=== PATIENT | female | born 2000 | race Caucasian/White ===

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

== ENCOUNTER 2021-02-28 23:56 | Emergency (ER) | payer OTHER ==
[~2021-02-28] VITALS: Ht 167.6 cm; Wt 65.5 kg
[~2021-02-28 23:56] MED LIST: NORT1TAB3
[2021-03-01] MEDS ORDERED: ACETAMINOPHEN TAB 650MG DOSE (2X325MG) PO ONE (05:05)
[2021-03-01] MEDS ORDERED: AMOXICILLIN 500 MG CAP PO ONE (05:25)
[2021-03-01] MEDS ORDERED: AMOX500C PO (05:50)
[2021-03-01 06:15] VITALS: BP 122/61
== END 2021-03-01 06:19 | disposition home or self-care (01) ==
LOC: M ED 23:56
DX: J03.00 Acute streptococcal tonsillitis, unspecified (principal)

== ENCOUNTER → 2021-04-25 | Outpatient (REF) | payer OTHER ==
[~2021-04-25] MED LIST changes: +AMOX500C PO
[2021-04-25 20:21] LABS: RSV AMPLIFICATION POSITIVE (NEGATIVE)
== END ==
LOC: M LAB REF 17:59
PROVIDERS: ATTEND Specialist
DX: J03.90 Acute tonsillitis, unspecified (principal)

== ENCOUNTER → 2021-05-01 | Outpatient (REF) | payer OTHER ==
[2021-05-01 19:16] LABS: RSV AMPLIFICATION POSITIVE (NEGATIVE)
== END ==
LOC: M LAB REF 17:12
PROVIDERS: ATTEND Specialist
DX: J01.90 Acute sinusitis, unspecified (principal)

== ENCOUNTER → 2021-08-11 | Outpatient (REF) | payer OTHER | LOC: M WUC 17:05 | PROVIDERS: ATTEND Physician Assistant | DX: N39.0 Urinary tract infection, site not specified (principal) ==

== ENCOUNTER → 2021-12-12 | Outpatient (CLI) | payer OTHER | LOC: M LABSMTC 09:03 | PROVIDERS: ATTEND Anesthesiology | DX: Z01.818 Encounter for other preprocedural examination (principal); Z11.52 Encounter for screening for COVID-19 ==

== ENCOUNTER 2021-12-17 09:58 | Day surgery (SDC) | payer OTHER ==
[~2021-12-17] VITALS: Ht 167.6 cm; Wt 70.4 kg
[2021-12-17] MEDS ORDERED: LR 1,000 ML IV SCH ×3 (11:00→15:00)
[2021-12-17] MEDS ORDERED: propofoL 200 MG/20 ML VIAL As Ordered ONE (12:06)
[2021-12-17] MEDS ORDERED: MIDAZOLAM INJ 2MG/2ML VIAL (J2250 PER 1MG) As Ordered ONE (12:06)
[2021-12-17] MEDS ORDERED: LIDOCAINE 2% 100MG/5ML SDV (FOR ANES.) As Ordered ONE (12:06)
[2021-12-17] MEDS ORDERED: fentaNYL 100 MCG/2 ML INJECTION As Ordered ONE (12:06)
[2021-12-17] MEDS ORDERED: ROCURONIUM BROMIDE 50 MG/5 ML VIAL As Ordered ONE (12:06)
[2021-12-17] MEDS ORDERED: dexameTHASONE 4 MG/ML 1ML VIAL (J1100 PER 1MG) As Ordered ONE (12:06)
[2021-12-17] MEDS ORDERED: ONDANSETRON 4MG/2ML VIAL As Ordered ONE (12:06)
[2021-12-17] MEDS ORDERED: BUPIVACAINE/EPIN 0.5% 30 ML VIAL As Ordered ONE (12:53)
[2021-12-17] MEDS ORDERED: SUGAMMADEX SODIUM 500 MG/5 ML VIAL (BRIDION) As Ordered ONE (13:45)
[2021-12-17] MEDS ORDERED: fentaNYL 100 MCG/2 ML INJECTION IV PRN (13:50)
[2021-12-17] MEDS ORDERED: ONDANSETRON 4MG/2ML VIAL IV PRN ×2 (13:50→14:30)
[2021-12-17] MEDS ORDERED: oxyCODONE 5MG TAB PO PRN (13:50)
[2021-12-17] MEDS ORDERED: HYDROMORPHONE HCL 0.5 MG/ 0.5 ML SYRINGE (J1170 PER 1) IV PRN (13:50)
[2021-12-17] MEDS ORDERED: HYDROcodone/APAP LIQUID 7.5-325MG 15ML UDC (LORTAB ELIXIR) PO PRN (14:30)
[2021-12-17 15:30] VITALS: BP 142/83
== END 2021-12-17 15:35 | disposition home or self-care (01) ==
LOC: M SDC 09:58
PROVIDERS: ATTEND Otolaryngology
DX: J35.03 Chronic tonsillitis and adenoiditis (principal); Z79.899 Other long term (current) drug therapy
CPT/HCPCS: 42826; 81025; 88302; J1100; J2250; J2405; J3010

== ENCOUNTER → 2022-06-21 | Outpatient (REF) | payer OTHER ==
[2022-06-21 14:51] LABS: APPEARANCE, URINE MANUAL CLEAR (CLEAR); COLOR, URINE MANUAL YELLOW (YELLOW)
[2022-06-21 14:52] LABS: BILIRUBIN, URINE MANUAL NEGATIVE (NEGATIVE); BLOOD URINE MANUAL POSITIVE (NEGATIVE); GLUCOSE, URINE (UA) MANUAL NEGATIVE (NEGATIVE); KETONE, URINE MANUAL NEGATIVE (NEGATIVE); NITRITE, URINE MANUAL NEGATIVE (NEGATIVE); PROTEIN, URINE MANUAL 1+ mg/dL (NEGATIVE); UROBILINOGEN, URINE MANUAL NORMAL (NORMAL)
[2022-06-21 14:53] LABS: LEUKOCYTE ESTERASE, URINE MAN TRACE (NEGATIVE)
[2022-06-21 15:49] LABS: RBC, URINE 0-1 /hpf (0-3); SQUAMOUS EPITHELIAL CELL URINE SMALL AMOUNT /hpf (SMALL AMT)
[2022-06-21 15:50] LABS: HYALINE CAST, URINE NONE SEEN /lpf (0-1)
[2022-06-21 16:00] LABS: BACTERIA, URINE SMALL AMOUNT; MUCUS, URINE SMALL AMOUNT (NEGATIVE)
[2022-06-21 16:15] LABS: GC DNA AMPLIFICATION NEGATIVE (NEGATIVE)
== END ==
LOC: M LAB REF 13:16
PROVIDERS: ATTEND Physician Assistant
DX: N39.0 Urinary tract infection, site not specified (principal)

== ENCOUNTER → 2022-06-21 | Outpatient (REF) | payer OTHER | LOC: M LAB REF 17:16 | PROVIDERS: ATTEND Physician Assistant | DX: Z20.2 Contact with and (suspected) exposure to infections with a predominantly sexual mode of transmission (principal) ==

== ENCOUNTER 2024-03-15 12:49 | Day surgery (SDC) | payer OTHER ==
[~2024-03-15] VITALS: Ht 167.6 cm; Wt 67.0 kg
[~2024-03-15 12:49] MED LIST changes: +PANT40TA29 PO; +TRAM50TA2 PO
[2024-03-15] MEDS: NS 1,000 ML IV ONE (13:20)
[2024-03-15] MEDS ORDERED: fentaNYL 100 MCG/2 ML INJECTION As Ordered ONE (14:21)
[2024-03-15 14:35] VITALS: TEMP 98
[2024-03-15 14:55] VITALS: BP 120/66; O2SAT 97
== END 2024-03-15 15:00 | disposition home or self-care (01) ==
LOC: M OPP 12:49
PROVIDERS: ATTEND Internal Medicine Gastroenterology
DX: K29.50 Unspecified chronic gastritis without bleeding (principal); R10.13 Epigastric pain; Z79.891 Long term (current) use of opiate analgesic; Z79.899 Other long term (current) drug therapy
CPT/HCPCS: 43239; 88305; J3010

== ENCOUNTER → 2024-08-09 | Outpatient (CLI) | payer OTHER | LOC: M RAD 06:58 | PROVIDERS: ATTEND Nurse Practitioner Family | DX: R11.13 Vomiting of fecal matter (principal); R11.0 Nausea; R93.2 Abnormal findings on diagnostic imaging of liver and biliary tract ==

== ENCOUNTER → 2024-08-20 | Outpatient (CLI) | payer OTHER ==
[~2024-08-20] MED LIST changes: +ISOVUE-370 76% 100ML VIAL ONE
== END ==
LOC: M PLAIMG 09:56
PROVIDERS: ATTEND Nurse Practitioner Family
DX: K55.1 Chronic vascular disorders of intestine (principal); R10.13 Epigastric pain
CPT/HCPCS: 74175; Q9967

== ENCOUNTER → 2024-09-24 | Outpatient (CLI) | payer OTHER ==
[~2024-09-24] MED LIST changes: -ISOVUE-370 76% 100ML VIAL ONE; +PROHANCE 279.3MG/ML 15ML VIAL As Ordered ONE
== END ==
LOC: M RAD 07:30
PROVIDERS: ATTEND Surgery Vascular Surgery
DX: K55.1 Chronic vascular disorders of intestine (principal)
CPT/HCPCS: A9576; C8902

== ENCOUNTER → 2024-10-06 | Outpatient (CLI) | payer OTHER ==
[~2024-10-06] MED LIST changes: -PROHANCE 279.3MG/ML 15ML VIAL As Ordered ONE
[2024-10-06 17:58] LABS: ALBUMIN 4.3 G/DL (3.2-5.2); BILIRUBIN,DIRECT 0.2 MG/DL (<0.4); BILIRUBIN,TOTAL 0.5 MG/DL (0.3-1.2); TOTAL PROTEIN 7.3 G/DL (5.7-8.2)
== END ==
LOC: M WUC 14:28
PROVIDERS: ATTEND Nurse Practitioner Family
DX: R11.0 Nausea (principal); K55.1 Chronic vascular disorders of intestine; R10.13 Epigastric pain

== ENCOUNTER → 2024-10-25 | Outpatient (CLI) | payer OTHER ==
[~2024-10-25] MED LIST changes: +E-Z-GAS II EFFERVESCENT PACKET (SODIUM BICARB./CITRIC ACID/SIMETHICONE) As Ordered ONE; +E-Z-HD 98% w/w 340GM SUSP BTL As Ordered ONE; +E-Z-PAQUE 96% w/w SUSP 176GM BTL As Ordered ONE
== END ==
LOC: M RAD 07:58
PROVIDERS: ATTEND Nurse Practitioner Family
DX: R11.0 Nausea (principal); R63.4 Abnormal weight loss; R10.13 Epigastric pain